=== PATIENT | male | born 1930 | race Caucasian/White ===

== ENCOUNTER 2017-06-12 17:43 | Emergency (ER) | payer MEDICARE ==
[2017-06-12] MEDS: LIDOCAINE 1%/EPI 30 ML INJ INJ (18:28)
[2017-06-12] MEDS: LIDOCAINE 2%/EPI MPF (SDV) 20 ML VIAL INJ (18:32)
== END 2017-06-12 19:30 | disposition home or self-care (01) ==
LOC: E/R 17:43
DX: S51.811A Laceration without foreign body of right forearm, initial encounter (principal); W54.0XXA Bitten by dog, initial encounter; Y92.9 Unspecified place or not applicable
CPT/HCPCS: 12004; 99284-25

== ENCOUNTER → 2017-08-05 | Outpatient (CLI) | payer MEDICARE, BC | END | disposition home or self-care (01) | LOC: HKI 08:50 | DX: M16.12 Unilateral primary osteoarthritis, left hip (principal); M17.12 Unilateral primary osteoarthritis, left knee; I87.2 Venous insufficiency (chronic) (peripheral); B15.9 Hepatitis A without hepatic coma; Z87.442 Personal history of urinary calculi | CPT/HCPCS: 73502; 73562-LT ==